=== PATIENT | male | born 1980 | race Caucasian/White ===

== ENCOUNTER 2017-12-05 08:11 | Inpatient (IN) | payer OTHER ==
[~2017-12-05] VITALS: Ht 180.3 cm; Wt 127.0 kg
[2017-12-05 08:46] LABS: PROTIME 10.1 Seconds (9.20-11.50)
[2017-12-05 08:51] LABS: ANION GAP 9 mmol/L (7-16); BUN 11 mg/dL (7-18); CALCIUM 9.3 mg/dL (8.5-10.1); CHLORIDE 103 mmol/L (98-107); CO2 28 mmol/L (21-32); CREATININE 0.9 mg/dL (0.6-1.3); GLUCOSE 118 mg/dL (70-99); POTASSIUM 3.7 mmol/L (3.5-5.1); SODIUM 140 mmol/L (136-145)
[2017-12-05 08:56] LABS: ABSOLUTE BASOPHILS 0.2 thou/uL (0.0-0.2); ABSOLUTE EOSINOPHILS 0.2 thou/uL (0.0-0.7); ABSOLUTE LYMPHOCYTES 4.7 thou/uL (0.8-5.3); ABSOLUTE MONOCYTES 1.3 thou/uL (0.0-1.2); ABSOLUTE NEUTROPHILS 7.1 thou/uL (1.6-8.1); BASOPHILS 1.2 %; EOSINOPHILS 1.4 %; HEMATOCRIT 52.3 % (42.0-52.0); HEMOGLOBIN 17.8 gm/dL (14.0-18.0); MCH 29.9 pg (26.0-34.0); MONOCYTES 9.6 %; MPV 8.4 fl. (7.2-11.1); NUCLEATED RBCS 0 /100WBC; PLATELET COUNT* 220 thou/uL (150-400); POLYS 52.8 %; RBC 5.95 mil/uL (4.50-6.00); RDW-CV 13.1 % (10.5-14.5); WBC 13.4 thou/uL (4.0-11.0)
[2017-12-05 09:01] LABS: ALBUMIN 3.9 g/dL (3.4-5.0); ALKALINE PHOSPHATASE 147 U/L (46-116); LIPASE 258 U/L (73-393); NT-PRO BRAIN NAT PEPTIDE 9 pg/mL (<300); SGOT 23 U/L (15-37); SGPT 53 U/L (30-65); TOTAL BILIRUBIN 0.4 mg/dL (<0.1-1.0); TOTAL PROTEIN 7.8 g/dL (6.4-8.2); TROPONIN-I LEVEL <0.06 ng/mL (<0.06)
[2017-12-05 09:07] LABS: AMP/METHAMP Negative (Negative); BARBITURATES Negative (Negative); BENZODIAZEPINES Negative (Negative); COCAINE Negative (Negative); METHADONE Negative (Negative); OPIATES Negative (Negative); PCP Negative (Negative); THC Negative (Negative)
--- NOTE | 2017-12-05 10:27 | NUR ---
DR. RODRIGUEZ IN TO SEE PT.
[2017-12-05 10:40] VITALS: BP 114/75
[2017-12-05 10:45] VITALS: BP 96/74
--- NOTE | 2017-12-05 10:55 | EKG ---
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1980 Requested By: Vincenzo Sanderson Order Number: [id number] MD: Trever Estrada Measurements Intervals [place] Rate: 183 P: 234 SD: 121 QRS: 31 QRSD: 92 T: 30 QT: 258 QTc: 450 Interpretive Statements Supraventricular tachycardia nonspecific st changes Baseline wander in lead(s) V1 No previous ECG available for comparison Electronically Signed On 12-05-2017 10:55:15 CDT by Trever Estrada [email or web address] <ELECTRONICALLY SIGNED> By: Trever Estrada MD, [facility] 12/05/17 1055 5 5 Trever Estrada MD, [facility] /EPI
--- NOTE | 2017-12-05 14:59 | 2DMMODE ---
[place] [address] 2 D/M-MODE ECHOCARDIOGRAM Name: ELAN BYRD Room: [address] [facility]#: [id number] Admission: 12/05/17 Attend Phys: Ambrosio Alcala, Discharge: Date of : 80 Date of Service: 12/05/17 1459 Report #: [id number] THIS REPORT FOR: //name// APPROVED REPORT Study performed: 12/05/2017 11:10:59 EXAM: Comprehensive 2D, Doppler, and color-flow Echocardiogram Patient Location: In-Patient Room #: [facility] Status: routine BSA: 2.43 HR: 115 bpm BP: 114/75 mmHg Rhythm: Atrial Fibrillation Other Information Study Quality: Good Indications Atrial Fibrillation 2D Dimensions LVEF(%): 64.92 (>50%) IVSd: 14.63 (7-11mm) LVOT Diam: 22.06 (18-24mm) LVDd: 36.74 mm PWd: 13.10 (7-11mm) Ascending Ao: 30.21 (22-36mm) LVDs: 23.95 (25-40mm) Aortic Root: 30.19 mm Wallace's LVEF: 64.92 % Volumes Left Atrial Volume (Systole) LA ESV Index: 20.80 mL/m2 Aortic Valve AoV Peak Keon.: 1.01 m/s AO Peak Gr.: 4.10 mmHg LVOT Max P.59 mmHg AO Mean Gr.: 2.51 mmHg LVOT Mean P.37 mmHg LVOT Max V: 0.80 m/s AO V2 VTI: 14.81 cm LVOT Mean V: 0.55 m/s AV (VTI): 3.46 cm2 LVOT V1 VTI: 13.41 cm Mitral Valve MV Decel. Time: 77.68 [place] [address] 2 D/M-MODE ECHOCARDIOGRAM Name: ELAN BYRD Room: [address] IN .R.#: [id number] Admission: 12/05/17 Attend Phys: Ambrosio Alcaal, Discharge: Date of : 80 Date of Service: 12/05/17 1459 Report #: [id number] MV PHT: 22.53 ms MVA (PHT): 9.77 cm2 TDI Medial E' Keon.: 0.13 m/s Lateral E' Keon.: 0.16 m/s Pulmonary Valve PV Peak Keon.: 0.75 m/s PV Peak Gr.: 2.22 mmHg Tricuspid Valve TR Peak Gr.: 11.33 mmHg RVSP: 16.00 mmHg Left Ventricle The left ventricle is normal size. There is normal LV segmental wall motion. Mild concentric left ventricular hypertrophy. Left ventricular systolic function is normal. LVEF is 60-65%. This study is not technically sufficient to allow evaluation of the LV diastolic function due to atrial fibrillation. Right Ventricle The right ventricle is normal size. The right ventricular systolic function is normal. Atria The left atrium size is normal. The right atrium size is normal. Aortic Valve The aortic valve is normal in structure. No aortic regurgitation is present. There is no aortic valvular stenosis. Mitral Valve The mitral valve is normal in structure. There is no mitral valve regurgitation noted. No evidence of mitral valve stenosis. Tricuspid Valve The tricuspid valve is normal in structure. Trace tricuspid regurgitation. The RVSP is ____16___ mmHg. Pulmonic Valve The pulmonary valve is normal in structure. There is no pulmonic valvular regurgitation. Great Vessels The aortic root is normal in size. IVC [place] [address] 2 D/M-MODE ECHOCARDIOGRAM Name: ELAN BYRD Room: [address] IN .R.#: [id number] Admission: 12/05/17 Attend Phys: Ambrosio Alcala, Discharge: Date of : 80 Date of Service: 12/05/17 1459 Report #: [id number] collapses with >50% inspiration Pericardium There is no pericardial effusion. <Conclusion> The left ventricle is normal size. Mild concentric left ventricular hypertrophy. Left ventricular systolic function is normal. LVEF is 60-65%. Trace tricuspid regurgitation. The RVSP is ____16___ mmHg. IVC is normal in size and collapses with >50% inspiration <ELECTRONICALLY SIGNED> By: Chivo Novoa MD, FACC 12/05/17 1459 1459 1459 Chivo Novoa MD, FACC /INF
[2017-12-05 15:42] VITALS: BP 104/75
--- NOTE | 2017-12-05 19:03 | NUR ---
JASON RESTING IN BED. CARDIZEM INFUSION AT 15 UNITS/HR. AFIB ON MONITOR. PAITENT DENIES PAIN. HOURLY ROUNDING COMPLETD FOR PATIENT SAFETY.
[2017-12-05 19:04] VITALS: BP 112/60
[2017-12-05 19:11] LABS: T3 UPTAKE 29 % (24-39)
[2017-12-05 20:00] VITALS: BP 114/63
[2017-12-05 23:41] VITALS: BP 96/60
--- NOTE | 2017-12-06 03:40 | NUR ---
PATIENT CONT. ON CARDIZEM DRIP TURNED DOWN TO 5 ML PER HOUR HR DOWN TO 50-60. RUNNING AROUND 80 ON MONITOR NOW. DENIES COMPLAINTS OF PAIN OR DISCOMFORT. NO SIGN OF DISTRESS. CONT. WITH PLAN OF CARE AT THIS TIME.
[2017-12-06 04:34] VITALS: BP 120/75
--- NOTE | 2017-12-06 05:15 | NUR ---
PATIENT CONT. CARDIZEM DRIP, SET AT 10 ML PER HOUR DUE TO HR 120S, AVERAGE 70-100. 3 SEC PAUSES. CONT. TO MONITOR.
[2017-12-06 05:17] LABS: CALCIUM 8.9 mg/dL (8.5-10.1); POTASSIUM 4.5 mmol/L (3.5-5.1)
[2017-12-06 08:00] VITALS: BP 128/76
--- NOTE | 2017-12-06 11:24 | EKG ---
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 12/06/17 1124 1020 1020 Trever Estrada MD, [facility] /EPI
[2017-12-06 11:30] VITALS: BP 114/60
--- NOTE | 2017-12-06 13:30 | NUR ---
RECEIVED REPORT FROM ADRIAN MONET. ASSUMED CARE OF PT AROUND 0730. VSS. PT A&O X4. O2 SAT 97% ON RA. 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 AM ASSESSMENT AND VITALS COMPLETED CHARTED. IV INTACT AND SALINE LOCKED - CARDIZEM DRIP STOPPED 30 MINS POST ORAL CARDIZEM ADMINISTRATION. PT EATING AND DRINKING WITHOUT ISSUE. PT UP AD HAILEE IN ROOM, VOIDING WITHOUT ISSUE. PT HAS HAD MANY VISITORS SO FAR THIS SHIFT. PT DENIES PAIN OR DISCOMFORT. PT CURRENTLY VISITING IN ROOM WITH FRIENDS. CALL LIGHT IS WITHIN REACH, LOW FALL RISK PRECAUTIONS ARE IN PLACE. HOURLY ROUNDING PERFORMED. WCTM.
--- NOTE | 2017-12-06 13:58 | NUR ---
Pt is A&O. Resides at home. Independent with ADls, continues to work outside of the home. No DME. No hx of HH or SNF. Goal is to return home at ne. Following.
[2017-12-06 16:00] VITALS: BP 122/80
--- NOTE | 2017-12-06 18:15 | NUR ---
PT REMAINS A&O X4. VSS. O2 SAT >90% ON RA. 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 IV SALINE LOCKED. PT HAS DENIED PAIN OR DISCOMFORT THROUGHOUT THE SHIFT. CURRENTLY AT BEDSIDE. PT EATING AND DRINKING WITHOUT ISSUE. PT ABLE TO BE UP AD HAILEE IN ROOM. PT VOIDING WITHOUT ISSUE. PT HOPING TO GO HOME TOMORROW. PT CURRENTLY IN BED PLAYING A GAME WITH HIS SPOUSE. CALL LIGHT IS WITHIN REACH. LOW FALL RISK PRECAUTIONS IN PLACE. HOURLY ROUNDING PERFORMED. WCTM FOR DURATION OF SHIFT.
[2017-12-06 20:00] VITALS: BP 122/72
[2017-12-07] VITALS: BP 108/54
[2017-12-07 04:00] VITALS: BP 102/60
--- NOTE | 2017-12-07 04:37 | NUR ---
ASSUMED PT CARE AT 1930, NURSING ASSESSMENT COMPLETED AT START OF SHIFT, PT VOICED NO CONCERNS THIS SHIFT. PT TRACING SINUS ARRHYTHMIA ON CARIDAC MONITOR. HOURLY ROUNDING COMPLETED, CALL LIGHT WITHIN REACH. PT PROGRESSING TOWARDS GOALS
[2017-12-07 05:09] LABS: CALCIUM 8.7 mg/dL (8.5-10.1); CREATININE 0.9 mg/dL (0.6-1.3); POTASSIUM 4.2 mmol/L (3.5-5.1)
[2017-12-07 08:00] VITALS: BP 116/63
[2017-12-07 08:13] VITALS: BP 102/60
[2017-12-07] MEDS ORDERED: SORINE 80 MG TA80 M1 PO (08:39)
[2017-12-07] MEDS ORDERED: CARDIZEM CD120 MG PO (08:39)
[2017-12-07] MEDS ORDERED: ASPIRIN325 PO (08:39)
--- NOTE | 2017-12-07 09:00 | NUR ---
RECEIVED REPORT FROM JIM MONET, ASSUMED CARE OF PT AROUND 0730. PT A&O X4. VSS. O2 SAT 96% ON RA. 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 AM ASSESSMENT AND VITALS COMPLETED CHARTED. IV INTACT AND SALINE LOCKED. PT DENIES PAIN OR DISCOMFORT AT THIS TIME. PT EATING AND DRINKING WITHOUT ISSUE. PT UP AD HAILEE IN ROOM. VOIDING WITHOUT ISSUE. PT LOOKING FORWARD TO GOING HOME TODAY. PT IN BEDSIDE CHAIR. AT BEDSIDE. LOW FALL RISK PRECAUTIONS IN PLACE. CALL LIGHT IS WITHIN REACH, HOURLY ROUNDING PERFORMED. WCTM.
[2017-12-07 09:16] VITALS: BP 116/63
--- NOTE | 2017-12-07 09:38 | EKG ---
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1980 Requested By: Zofia Case Order Number: [id number] Reading MD: Arthur Starkey Measurements Intervals [place] Rate: 72 P: 43 [place]: 146 QRS: 44 QRSD: 101 T: 31 QT: 386 QTc: 423 Interpretive Statements Sinus rhythm Abnormal R-wave progression, early transition Compared to ECG 12/06/2017 10:20:51 No significant changes Electronically Signed On 12-07-2017 9:38:44 CDT by Arthur Starkey [email or web address] <ELECTRONICALLY SIGNED> By: Arthur Starkey MD, [facility] 12/07/17 0938 0847 0847 Arthur Starkey MD, [facility] /EPI
--- NOTE | 2017-12-07 10:14 | NUR ---
DISCHARGE ORDERS RECEIVED. DISCHARGE COMPLETED CHARTED. DISCHARGE SUMMARY AND CARE NOTES GONE OVER WITH THE PT. PT COMMUNICATES UNDERSTANDING. SCRIPTS GIVEN. PT AWARE OF FOLLOW UP APPOINTMENT. IV AND CARDIAC MONIOTR REMOVED. ALL BELONGINGS GATHERED AND SENT WITH THE PT. PT DENIES PAIN OR DISCOMFORT AT TIME OF DC. VSS. PT LEFT UNIT WITH NURSING STAFF. PT LEFT HOSPITAL IN CAR WITH .
== END 2017-12-07 10:16 | disposition home or self-care (01) | DRG 309 ==
LOC: M.ERS 08:11 → M.2W 09:37 → M.TBA-ER 09:37 → M.2W 10:38
PROVIDERS: Emergency Medicine; ADMIT Internal Medicine
DX: I48.91 Unspecified atrial fibrillation (principal); D68.59 Other primary thrombophilia; I47.1 Supraventricular tachycardia; E66.9 Obesity, unspecified; F17.210 Nicotine dependence, cigarettes, uncomplicated; E78.00 Pure hypercholesterolemia, unspecified; G47.33 Obstructive sleep apnea (adult) (pediatric); I10 Essential (primary) hypertension; Z88.0 Allergy status to penicillin; Z79.82 Long term (current) use of aspirin; Z79.899 Other long term (current) drug therapy; Z68.39 Body mass index [BMI] 39.0-39.9, adult; Z82.49 Family history of ischemic heart disease and other diseases of the circulatory system

== ENCOUNTER → 2019-03-29 | Outpatient (CLI) | payer OTHER ==
[~2019-03-29] MED LIST: ASPIRIN325 PO; CARDIZEM CD120 MG PO; SORINE 80 MG TA80 M1 PO
== END ==
LOC: M.CT 13:40
DX: Z13.6 Encounter for screening for cardiovascular disorders (principal)